=== PATIENT | female | born 2000 | race Two or more races ===

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

== ENCOUNTER 2022-05-28 20:15 | Emergency (ER) | payer OTHER ==
[~2022-05-28] VITALS: Ht 157.5 cm; Wt 127.0 kg
== END 2022-05-28 22:04 | disposition home or self-care (01) ==
LOC: ER 20:15 → EMR PED 20:18
DX: R19.7 Diarrhea, unspecified (principal)

== ENCOUNTER 2022-07-14 14:54 | Emergency (ER) | payer OTHER ==
[~2022-07-14] VITALS: Ht 157.5 cm; Wt 128.4 kg
== END 2022-07-14 22:05 | disposition home or self-care (01) ==
LOC: EMR PED 14:54
DX: J02.9 Acute pharyngitis, unspecified (principal); R53.81 Other malaise; Z20.822 Contact with and (suspected) exposure to COVID-19

== ENCOUNTER → 2022-12-05 | Emergency (ER) | payer OTHER ==
[~2022-12-05] VITALS: Ht 157.5 cm; Wt 129.7 kg
[~2022-12-05] MED LIST: AZITHROMYCIN250 MG PO; CEPHALEXIN500 MG PO; OSEL75CA PO; PHENAGIL TABLE1 EACH PO; PREDNISOLONE SO30 MG PO; PROAIR RESPICL90 MCG IH
== END | disposition home or self-care (01) ==
LOC: ER 19:10 → EMR PED 19:12
DX: J02.9 Acute pharyngitis, unspecified (principal)

== ENCOUNTER 2023-01-19 10:41 | Emergency (ER) | payer OTHER ==
[~2023-01-19] VITALS: Ht 157.5 cm; Wt 123.4 kg
== END 2023-01-19 15:16 | disposition home or self-care (01) ==
LOC: EMR PED 10:41 → ER 10:42 → EMR PED 10:42
DX: J39.9 Disease of upper respiratory tract, unspecified (principal); Z20.822 Contact with and (suspected) exposure to COVID-19

== ENCOUNTER 2023-09-05 15:20 | Emergency (ER) | payer OTHER ==
[~2023-09-05] VITALS: Ht 157.5 cm; Wt 130.2 kg
[2023-09-05] MEDS ORDERED: PRENATAL + DHA1 EAC1 PO (15:51)
[2023-09-05] MEDS ORDERED: FOLIC ACID20 MG PO (15:51)
[2023-09-05] MEDS ORDERED: PEPCID AC10 MG PO (15:51)
== END 2023-09-05 22:38 | disposition home or self-care (01) ==
LOC: ER 15:21
DX: M79.641 Pain in right hand (principal)

== ENCOUNTER 2024-06-25 17:53 | Emergency (ER) | payer OTHER ==
[~2024-06-25] VITALS: Ht 157.5 cm; Wt 126.6 kg
[~2024-06-25 17:53] MED LIST changes: +FOLIC ACID20 MG PO; +PEPCID AC10 MG PO; +PRENATAL + DHA1 EAC1 PO
[2024-06-25] MEDS ORDERED: HYOSCYAMINE SULFATE 0.125 MG TAB.SUBL SL ONE (18:30)
[2024-06-25] MEDS ORDERED: METOCLOPRAMIDE HCL 5 MG/ML VIAL IM ONE (18:30)
[2024-06-25 19:22] LABS: ALBUMIN 3.4 gm/dL (3.4-5.0); BILIRUBIN TOTAL 0.23 mg/dL (0.3-1.2); CALCIUM 9.1 mg/dL (8.5-10.1); CREATININE SERUM 0.68 mg/dL (0.55-1.02); GFR 108.2; GLOBULINA 4.9 G/DL (2.4-3.5); POTASSIUM 4.06 mEq/L (3.5-5.1); TOTAL PROTEIN 8.3 gm/dL (6.4-8.2)
[2024-06-25 19:23] LABS: HEMATOCRIT 35.8 % (36.0-45.00); HEMOGLOBIN 11.6 g/dL (12.0-15.00); MEAN CELL VOLUME 71.3 fL (80.00-100.00); MEAN CORPUSCULAR HEMOGLOBIN 23.1 pg (27.00-32.0); MEAN CORPUSCULAR HGB CONC 32.4 g/dl (32.0-36.0); PLATELET COUNT 449 K/uL (150-450); RED BLOOD COUNT 5.02 M/uL (4.00-6.00); RED CELL DISTRIBUTION WIDTH 17.9 % (11.5-14.5)
[2024-06-25] MEDS ORDERED: ONDANSETRON HCL 2 MG/ML VIAL IM ONE (20:45)
== END 2024-06-25 20:18 | disposition home or self-care (01) ==
LOC: ER 17:54
PROVIDERS: General Practice
DX: B34.9 Viral infection, unspecified (principal); Z20.822 Contact with and (suspected) exposure to COVID-19

== ENCOUNTER → 2025-05-24 | Emergency (ER) | payer OTHER ==
[~2025-05-24] VITALS: Ht 157.5 cm; Wt 136.1 kg
[2025-05-24 12:22] VITALS: BP 111/75; O2SAT 100
[2025-05-24 16:28] LABS: BASO % 0.5 % (0.1-1.2); EOS # 0.11 (0.04-0.54); EOS % 1.0 % (0.7-7.0); LYMPH # 2.55 (1.18-3.74); LYMPH % 23.7 % (19.3-53.1); MEAN PLATELET VOLUME 9.40 fl (9.4-12.4); MONO # 0.80 (0.24-0.82); MONO % 7.4 % (4.7-12.5); NEUT # 7.22 (1.56-6.13); NEUT % 67.2 % (34.0-71.1); RED CELL DISTRIBUTION WIDTH 17.4 % (11.6-14.4)
[2025-05-24 17:18] LABS: URINE APPEARANCE Clear; URINE BILIRRUBIN Negative (NEGATIVE); URINE BLOOD Negative; URINE COLOR Yellow; URINE GLUCOSE Negative (NEGATIVE); URINE KETONE 15 (NEGATIVE); URINE LEUKOCYTE Negative; URINE NITRATE Negative; URINE PROTEIN Negative (NEGATIVE); URINE UROBILINOGEN 0.2 E.U./dl
[2025-05-24 17:21] LABS: URINE BACTERIA 120.0 uL (0.0-1933); URINE EPITHELIAL CELLS 7.0 uL (0.0-38.8); URINE RBC 2.7 uL (0.0-20.8); URINE WBC 2.3 uL (0.0-23.2)
[2025-05-24 17:24] LABS: URINE CAST 0.00 uL (0.0-1.40)
[2025-05-24 17:50] LABS: ALT/SGPT 21.0 U/L (12-78); AST/SGOT 12.0 U/L (15-37); BILIRUBIN TOTAL 0.38 mg/dL (0.3-1.2); BUN CREA RATIO 16.0 (7.0-25.0); CREATININE SERUM 0.49 mg/dL (0.55-1.02); GFR 156.5; GLOBULINA 4.2 G/DL (2.4-3.5); GLUCOSE FASTING 81.0 mg/dL (65-100); OSMOLALITY SERUM 277.0 MOSM/KG (275-295)
[2025-05-24 17:54] LABS: HCG QUANTITATIVE 57237.0 mUI/mL (1-3)
== END | disposition home or self-care (01) ==
LOC: ER 11:24
PROVIDERS: General Practice
DX: O26.891 Other specified pregnancy related conditions, first trimester (principal); R10.2 Pelvic and perineal pain; Z3A.01 Less than 8 weeks gestation of pregnancy